=== PATIENT | female | born 1955 | race Two or more races ===

== ENCOUNTER 2023-08-24 10:16 | Emergency (ER) | payer OTHER ==
[~2023-08-24] VITALS: Ht 157.5 cm; Wt 57.2 kg
[2023-08-24] MEDS ORDERED: CRESTOR5 MG PO (10:29)
[2023-08-24] MEDS ORDERED: DIPHENHYDRAMINE HCL 50 MG/ML VIAL 1ML IM ONE (11:00)
[2023-08-24 11:33] LABS: HEMATOCRIT 38.6 % (36.0-45.00); HEMOGLOBIN 13.4 g/dL (12.0-15.00); MEAN CELL VOLUME 89.2 fL (80.00-100.00); MEAN CORPUSCULAR HEMOGLOBIN 30.9 pg (27.00-32.0); MEAN CORPUSCULAR HGB CONC 34.7 g/dl (32.0-36.0); PLATELET COUNT 257 K/uL (150-450); RED BLOOD COUNT 4.33 M/uL (4.00-6.00); RED CELL DISTRIBUTION WIDTH 13.6 % (11.5-14.5)
[2023-08-24 12:10] LABS: CALCIUM 9.9 mg/dL (8.5-10.1); CREATININE SERUM 0.6 mg/dL (0.55-1.02); GFR 99.12; POTASSIUM 4.11 mEq/L (3.5-5.1)
== END 2023-08-24 13:14 | disposition home or self-care (01) ==
LOC: ER 10:17
PROVIDERS: General Practice
DX: H81.10 Benign paroxysmal vertigo, unspecified ear (principal)
CPT/HCPCS: 36415; 70450; 93005; 96372; 99284; J1200

== ENCOUNTER 2024-02-21 08:16 | Outpatient (CLI) | payer OTHER ==
[~2024-02-21 08:16] MED LIST: CRESTOR5 MG PO
== END 2024-02-21 08:36 | disposition home or self-care (01) ==
LOC: MRI 08:16
PROVIDERS: ATTEND Otolaryngology Otology & Neurotology
DX: H90.42 Sensorineural hearing loss, unilateral, left ear, with unrestricted hearing on the contralateral side (principal)
CPT/HCPCS: 70553